=== PATIENT | female | born 1935 | race Caucasian/White ===

== ENCOUNTER 2019-03-31 13:39 | Emergency (ER) | payer MEDICARE ==
[~2019-03-31] VITALS: Ht 170.2 cm; Wt 56.7 kg
--- OUTSIDE RECORDS SUMMARY | 2019-03-31 13:42 | XMS REPORT ---
Author Author [facility] Address Unknown Phone Unavailable Care Team Providers Care Supervisor [place] Department Name Role Phone Unavailable Unavailable Problems This patient has no known problems. Allergies, Adverse Reactions, Alerts This patient has no known allergies or adverse reactions. Medications This patient has no known medications.
--- NOTE | 2019-03-31 15:26 | Diagnostic Imaging Report ---
EXAMINATION: FOREARM 2 VIEW LT -HOPD, WRIST 3VW LT - HOPD INDICATION: Trauma COMPARISON: None FINDINGS: Left wrist: Diffuse osteopenia. No acute fracture or dislocation. Ossific fragments at the ulnar styloid are likely related to remote trauma. Degenerative changes of the carpal joints with subchondral cystic change. Moderate first CMC joint degenerative changes. The soft tissues appear unremarkable. Left forearm: No acute fracture or dislocation. No elbow joint effusion. Diffuse osteopenia. Soft tissues appear unremarkable. IMPRESSION: No acute osseous injury. Cortical irregularity at the distal radius and ossific fragments at the ulnar styloid are likely related to remote trauma. Diffuse osteopenia and degenerative changes as above. Signed by: Kin Haley MD on 03/31/2019 3:23 PM
== END 2019-03-31 15:43 | disposition home or self-care (01) ==
LOC: FSED 13:39
DX: S63.522A Sprain of radiocarpal joint of left wrist, initial encounter (principal); W18.30XA Fall on same level, unspecified, initial encounter; Y93.01 Activity, walking, marching and hiking; Y92.008 Other place in unspecified non-institutional (private) residence as the place of occurrence of the external cause
CPT/HCPCS: 99284